=== PATIENT | male | born 1950 | race Caucasian/White ===

== ENCOUNTER 2023-03-15 15:12 | Outpatient (CLI) | payer MEDICARE, SELFPAY ==
[2023-03-15 19:59] LABS: MALB Creatinine Ratio < 6.9 mg/g (0-30); Microalbumin Urine Random < 6.0 mg/L (0-16.7)
== END 2023-03-15 15:13 | disposition home or self-care (01) ==
LOC: ANHWCLAB 15:15
PROVIDERS: Visit Provider Internal Medicine
DX: E11.9 Type 2 diabetes mellitus without complications (principal)
CPT/HCPCS: 82043